=== PATIENT | female | born 1955 | race Caucasian/White ===

== ENCOUNTER 2017-03-21 18:20 | Emergency (ER) | payer OTHER ==
[~2017-03-21] VITALS: Ht 160 cm; Wt 63.5 kg
[~2017-03-21 18:20] MED LIST: ADVAIR 2501 DISK W/1 IH; ATIVAN2 MG PO; BENADRYL25 MG; CIPRO500 MG PO; CLONAZEPAM0.5 MG; CLONAZEPAM0.5 MG PO; CYMBALTA30 MG; CYMBALTA60 MG; DIPHENHIST25 MG PO; HALOPERIDOL5 MG PO; IMODIUM A-D2 MG PO; LAMICTAL25 MG; LEVAQUIN750 MG PO; LEVSIN/SL0.125 MG SL; LORATADINE10 MG PO; NEURONTIN300 MG; RESTORIL15 MG; ULTRAM50 MG; VANCOCIN ORAL SUSP. PO; VASOTEC10 MG NGT; XOPENEX0.63 MG/3 IH; ZANTAC150 M1 PO; [UNRECOGNIZED DRUG - OTHER]; [UNRECOGNIZED DRUG - OTHER]; [UNRECOGNIZED DRUG - OTHER]; [UNRECOGNIZED DRUG - OTHER]
[2017-03-22] MEDS ORDERED: XOPENEX0.63 MG/3 IH (01:47)
[2017-03-22] MEDS ORDERED: PULMICORT1 MG/2 ML IH (01:47)
[2017-03-22] MEDS ORDERED: ZYNCOF 20-400120 ML PO ×2 (01:48)
== END 2017-03-22 01:34 | disposition home or self-care (01) ==
LOC: ER 18:20
DX: J45.998 Other asthma (principal)

== ENCOUNTER 2017-10-28 11:23 | Inpatient (IN) | payer OTHER ==
[~2017-10-28] VITALS: Ht 162.6 cm; Wt 72.6 kg
[~2017-10-28 11:23] MED LIST changes: +PULMICORT1 MG/2 ML IH; +ZYNCOF 20-400120 ML PO
[2017-10-28] MEDS ORDERED: INVEGA SUS234 MG/1.5 (11:52)
[2017-10-28] MEDS ORDERED: VASOTEC10 MG (11:53)
== END 2017-11-05 14:49 | disposition home or self-care (01) | DRG 202 ==
LOC: ER 11:23 → MEDJ 22:28
PROC: 4A033R1 Measurement of Arterial Saturation, Peripheral, Percutaneous Approach (ICD-10-PCS; principal; 2017-10-28)
PROC: 3E0F7GC Introduction of Other Therapeutic Substance into Respiratory Tract, Via Natural or Artificial Opening (ICD-10-PCS; 2017-10-28)
DX: J45.41 Moderate persistent asthma with (acute) exacerbation (principal); E27.49 Other adrenocortical insufficiency; N39.0 Urinary tract infection, site not specified; E86.0 Dehydration; F32.89 Other specified depressive episodes

== ENCOUNTER 2018-04-17 19:10 | Inpatient (IN) | payer OTHER ==
[~2018-04-17] VITALS: Ht 160 cm; Wt 64.4 kg
[~2018-04-17 19:10] MED LIST changes: +INVEGA SUS234 MG/1.5; +VASOTEC10 MG
== END 2018-04-24 20:27 | disposition home or self-care (01) | DRG 194 ==
LOC: ER 19:10 → MEDJ 04-18 17:16
PROVIDERS: ADMIT Specialist
PROC: 3E0F7GC Introduction of Other Therapeutic Substance into Respiratory Tract, Via Natural or Artificial Opening (ICD-10-PCS; principal; 2018-04-18)
PROC: BB24ZZZ Computerized Tomography (CT Scan) of Bilateral Lungs (ICD-10-PCS; 2018-04-18)
PROC: 4A033R1 Measurement of Arterial Saturation, Peripheral, Percutaneous Approach (ICD-10-PCS; 2018-04-19)
DX: J16.8 Pneumonia due to other specified infectious organisms (principal); J45.901 Unspecified asthma with (acute) exacerbation; F32.2 Major depressive disorder, single episode, severe without psychotic features; E27.49 Other adrenocortical insufficiency; N39.0 Urinary tract infection, site not specified; R09.02 Hypoxemia; E86.0 Dehydration; G24.01 Drug induced subacute dyskinesia; B96.29 Other Escherichia coli [E. coli] as the cause of diseases classified elsewhere

== ENCOUNTER 2018-05-20 19:24 | Emergency (ER) | payer OTHER ==
[~2018-05-20] VITALS: Ht 157.5 cm; Wt 63.5 kg
== END 2018-05-20 23:45 | disposition home or self-care (01) ==
LOC: ER 19:24
DX: J45.998 Other asthma (principal)

== ENCOUNTER 2018-07-19 09:50 | Outpatient (CLI) | payer OTHER | END 2018-07-19 10:16 | disposition home or self-care (01) | LOC: SONOGRAMA 09:50 | DX: D05.12 Intraductal carcinoma in situ of left breast (principal); N60.12 Diffuse cystic mastopathy of left breast; N60.11 Diffuse cystic mastopathy of right breast ==

== ENCOUNTER 2018-08-02 06:00 | Inpatient (IN) | payer OTHER ==
[~2018-08-02 06:00] MED LIST changes: +HYDROCHLOROTHIA25 MG PO; +PREDNISONE10 MG PO; +PREVACID30 MG PO; +ZOCOR20 MG PO
== END 2018-08-04 14:44 | disposition home or self-care (01) | DRG 580 ==
LOC: CIR.AMB 06:00 → O/R 12:16 → SURH 12:16 → CIR.AMB 18:22 → SURH 08-04 14:44
PROVIDERS: ADMIT Surgery
PROC: 07B60ZX Excision of Left Axillary Lymphatic, Open Approach, Diagnostic (ICD-10-PCS; 2018-08-02)
PROC: 0HTU0ZZ Resection of Left Breast, Open Approach (ICD-10-PCS; principal; 2018-08-02 10:00)
DX: D05.12 Intraductal carcinoma in situ of left breast (principal); E27.49 Other adrenocortical insufficiency; F32.2 Major depressive disorder, single episode, severe without psychotic features; G24.01 Drug induced subacute dyskinesia; I10 Essential (primary) hypertension; F41.8 Other specified anxiety disorders; Z88.0 Allergy status to penicillin; Z88.2 Allergy status to sulfonamides; Z88.6 Allergy status to analgesic agent

== ENCOUNTER → 2018-08-02 06:35 | Outpatient (CLI) | payer OTHER | END | disposition home or self-care (01) | LOC: LAB 06:35 | DX: E87.6 Hypokalemia (principal) ==

== ENCOUNTER 2019-08-25 00:41 | Emergency (ER) | payer OTHER ==
[~2019-08-25] VITALS: Ht 160 cm; Wt 65.3 kg
[2019-08-25] MEDS ORDERED: ORAPRED ODT10 MG PO (04:46)
[2019-08-25] MEDS ORDERED: DOLOGESIC 500-1 EACH PO (04:46)
== END 2019-08-25 05:12 | disposition home or self-care (01) ==
LOC: ER 00:41
DX: J45.901 Unspecified asthma with (acute) exacerbation (principal); Z03.818 Encounter for observation for suspected exposure to other biological agents ruled out; R06.02 Shortness of breath

== ENCOUNTER 2019-12-23 20:09 | Emergency (ER) | payer OTHER ==
[~2019-12-23] VITALS: Ht 157.5 cm; Wt 63.5 kg
[~2019-12-23 20:09] MED LIST changes: +DOLOGESIC 500-1 EACH PO; +ORAPRED ODT10 MG PO
[2019-12-24] MEDS ORDERED: IPRAT-ALBUT 0.5-3 ML IH (03:12)
[2019-12-24] MEDS ORDERED: FLONASE ALLERG9.9 ML NASAL (03:12)
[2019-12-24] MEDS ORDERED: XOPENEX0.63 MG/3 IH (03:12)
== END 2019-12-24 03:21 | disposition home or self-care (01) ==
LOC: ER 20:09
DX: J45.998 Other asthma (principal); Z03.818 Encounter for observation for suspected exposure to other biological agents ruled out; R07.89 Other chest pain; R05 Cough

== ENCOUNTER 2020-05-12 14:16 | Emergency (ER) | payer OTHER ==
[~2020-05-12] VITALS: Ht 154.9 cm; Wt 63.5 kg
[~2020-05-12 14:16] MED LIST changes: +FLONASE ALLERG9.9 ML NASAL; +IPRAT-ALBUT 0.5-3 ML IH
[2020-05-12] MEDS ORDERED: ACETAMINOPHEN650 M2 PO (18:55)
[2020-05-12] MEDS ORDERED: ORPHENADRINE C100 MG PO (18:55)
== END 2020-05-12 19:03 | disposition home or self-care (01) ==
LOC: ER 14:16
DX: S80.02XA Contusion of left knee, initial encounter (principal); S80.01XA Contusion of right knee, initial encounter; S00.83XA Contusion of other part of head, initial encounter; S50.02XA Contusion of left elbow, initial encounter; S05.12XA Contusion of eyeball and orbital tissues, left eye, initial encounter; W18.09XA Striking against other object with subsequent fall, initial encounter; Y93.01 Activity, walking, marching and hiking; Y92.012 Bathroom of single-family (private) house as the place of occurrence of the external cause; Y99.8 Other external cause status

== ENCOUNTER 2021-08-12 09:40 | Emergency (ER) | payer OTHER ==
[~2021-08-12] VITALS: Ht 157.5 cm; Wt 64.9 kg
[~2021-08-12 09:40] MED LIST changes: +ACETAMINOPHEN650 M2 PO; +ORPHENADRINE C100 MG PO
[2021-08-12] MEDS ORDERED: EFFEXOR XR75 MG PO (10:00)
[2021-08-12] MEDS ORDERED: LAMICTAL25 MG PO (10:00)
[2021-08-12] MEDS ORDERED: NEURONTIN600 M1 PO (10:01)
[2021-08-12] MEDS ORDERED: SINEMET 25-1001 EACH (10:01)
[2021-08-12] MEDS ORDERED: CELEXA10 MG PO (10:01)
[2021-08-12] MEDS ORDERED: ZITHROMAX500 MG PO (14:31)
[2021-08-12] MEDS ORDERED: IPRAT-ALBUT 0.5-3 ML IH (14:54)
== END 2021-08-12 16:08 | disposition home or self-care (01) ==
LOC: ER 09:40
DX: J45.901 Unspecified asthma with (acute) exacerbation (principal); J44.1 Chronic obstructive pulmonary disease with (acute) exacerbation; Z20.822 Contact with and (suspected) exposure to COVID-19; Z88.6 Allergy status to analgesic agent; Z88.0 Allergy status to penicillin; Z88.2 Allergy status to sulfonamides

== ENCOUNTER 2023-01-03 08:00 | Inpatient (IN) | payer OTHER ==
[~2023-01-03] VITALS: Ht 160 cm; Wt 74.4 kg
[~2023-01-03 08:00] MED LIST changes: +CELEXA10 MG PO; +EFFEXOR XR75 MG PO; +LAMICTAL25 MG PO; +NEURONTIN600 M1 PO; +RESTORIL30 MG; +SINEMET 25-1001 EACH; +ZITHROMAX500 MG PO
[2023-01-03 10:46] LABS: PH,URINE 5.5 (5.0-8.0); URINE APPEARANCE Clear; URINE BILIRRUBIN Negative (NEGATIVE); URINE BLOOD Negative; URINE COLOR Dark Yellow; URINE GLUCOSE Negative (NEGATIVE); URINE LEUKOCYTE Negative; URINE NITRATE Negative; URINE PROTEIN Trace (NEGATIVE); URINE UROBILINOGEN 0.2 E.U./dl
[2023-01-03 10:47] LABS: HEMATOCRIT 34.4 % (36.0-45.00); MEAN CELL VOLUME 89.2 fL (80.00-100.00); MEAN CORPUSCULAR HEMOGLOBIN 28.5 pg (27.00-32.0); PLATELET COUNT 296 K/uL (150-450); RED BLOOD COUNT 3.85 M/uL (4.00-6.00); RED CELL DISTRIBUTION WIDTH 16.6 % (11.5-14.5)
[2023-01-03 10:51] LABS: URINE BACTERIA 83.1 uL (0.0-1933); URINE EPITHELIAL CELLS 10.1 uL (0.0-38.8); URINE RBC 11.6 uL (0.0-20.8); URINE WBC 4.6 uL (0.0-23.2)
[2023-01-03 11:17] LABS: PARTIAL THROMBOPLASTIN TIME 26.2 SECONDS (22.0-34.0); PROTHROMBIN TIME 10.5 SECONDS (9.0-11.5)
[2023-01-03] MEDS ORDERED: LAMICTAL25 MG PO (11:20)
[2023-01-03] MEDS ORDERED: GRALISE600 MG PO (11:20)
[2023-01-03] MEDS ORDERED: PREVACID30 MG (11:20)
[2023-01-03] MEDS ORDERED: TRAZ PO (11:21)
[2023-01-03] MEDS ORDERED: SINEMET 25-1001 EACH PO (11:21)
[2023-01-03 11:22] LABS: ALBUMIN 3.7 gm/dL (3.4-5.0); BILIRUBIN TOTAL 0.33 mg/dL (0.3-1.2); CALCIUM 9.4 mg/dL (8.5-10.1); CREATININE SERUM 0.84 mg/dL (0.55-1.02); GFR 67.42; GLOBULINA 2.8 G/DL (2.4-3.5); TOTAL PROTEIN 6.5 gm/dL (6.4-8.2)
[2023-01-03 12:06] LABS: POTASSIUM 2.85 mEq/L (3.5-5.1)
[2023-01-08 08:39] LABS: CALCIUM 9.1 mg/dL (8.5-10.1); CREATININE SERUM 0.85 mg/dL (0.55-1.02); GFR 66.51; POTASSIUM 3.53 mEq/L (3.5-5.1)
[2023-01-09] MEDS ORDERED: BUSPIRONE HCL15 MG (08:38)
[2023-01-09] MEDS ORDERED: LEVALBUTEROL TA15 GM (08:39)
[2023-01-09] MEDS ORDERED: FLOVENT HFA12 G1 (08:39)
[2023-01-09] MEDS ORDERED: SIMVASTATIN10 MG (08:39)
[2023-01-09] MEDS ORDERED: VITAMIN D350 MC4 (08:39)
[2023-01-09] MEDS ORDERED: ENALAPRIL MALEA10 MG (08:39)
[2023-01-09] MEDS ORDERED: CETIRIZINE HCL10 MG (08:39)
[2023-01-09] MEDS ORDERED: TRAZODONE HCL100 MG (08:39)
[2023-01-09] MEDS ORDERED: VITAMIN B-121000 MC2 (08:39)
[2023-01-09] MEDS ORDERED: PREDNISONE10 M2 (08:39)
[2023-01-09] MEDS ORDERED: FAMOTIDINE20 MG (08:40)
[2023-01-09] MEDS ORDERED: PANTOPRAZOLE SO20 MG (08:40)
[2023-01-10 06:27] LABS: HEMATOCRIT 27.9 % (36.0-45.00); HEMOGLOBIN 9.1 g/dL (12.0-15.00); MEAN CORPUSCULAR HEMOGLOBIN 29.4 pg (27.00-32.0); MEAN CORPUSCULAR HGB CONC 32.6 g/dl (32.0-36.0); PLATELET COUNT 259 K/uL (150-450); RED BLOOD COUNT 3.09 M/uL (4.00-6.00); RED CELL DISTRIBUTION WIDTH 16.7 % (11.5-14.5)
[2023-01-11 05:21] LABS: MEAN CORPUSCULAR HGB CONC 32.6 g/dl (32.0-36.0); PLATELET COUNT 257 K/uL (150-450); RED BLOOD COUNT 3.22 M/uL (4.00-6.00); RED CELL DISTRIBUTION WIDTH 16.8 % (11.5-14.5)
[2023-01-11 05:47] LABS: HEMOGLOBIN 9.4 g/dL (12.0-15.00); MEAN CORPUSCULAR HEMOGLOBIN 29.1 pg (27.00-32.0)
[2023-01-11] MEDS ORDERED: ELIQUIS2.5 MG PO (15:52)
[2023-01-11] MEDS ORDERED: PERCOCET 5-3251 EACH PO (15:52)
[2023-01-11] MEDS ORDERED: CIPRO500 MG PO (15:52)
== END 2023-01-11 18:08 | DRG 470 ==
LOC: SURG 01-09 06:00 → O/R 01-09 06:00 → SURH 01-09 08:00 → EDSTATUS 01-09 08:00 → SURG 01-09 09:59 → SURH 01-09 15:30 → SURG 01-11 18:08
PROVIDERS: ADMIT Orthopaedic Surgery; ATTEND Orthopaedic Surgery
PROC: 0SRC0J9 Replacement of Right Knee Joint with Synthetic Substitute, Cemented, Open Approach (ICD-10-PCS; principal; 2023-01-09 15:30)
DX: M17.11 Unilateral primary osteoarthritis, right knee (principal)